=== PATIENT | female | born 1975 | race Caucasian/White ===

== ENCOUNTER → 2017-07-11 | Outpatient (CLI) | payer BC ==
[~2017-07-11] MED LIST: CHOL500019 PO; DOCU100T7 PO; ESTR0.9T PO; FERR220S12 PO; FISH1CAP15 PO; MELO-195 PO; METH500T5 PO; MULT-974 PO; OXYC-12 PO
--- NOTE | 2017-07-11 19:18 | Diagnostic Imaging Report ---
INDICATION: Screening. The current study was also evaluated with a Computer Aided Detection (CAD) system. Comparison is made with prior examination from 06/02/16. FINDINGS: There is a moderate amount of residual fibroglandular tissue bilaterally. There are benign-type calcifications. There is no dominant mass, spiculated lesion or suspicious calcification identified. The skin, nipples and axillae are unremarkable. IMPRESSION: ACR BI-RADS Category 2: Benign findings. Result letter will be mailed to the patient. Note: At least 10% of breast cancer is not imaged by mammography. Dictated by: Dictated on workstation # [id number]
== END ==
LOC: RAD 13:54
PROVIDERS: ATTEND Nurse Practitioner Family
DX: Z12.31 Encounter for screening mammogram for malignant neoplasm of breast (principal)
CPT/HCPCS: 77067

== ENCOUNTER 2017-12-28 05:45 | Outpatient (CLI) | payer BC ==
[~2017-12-28] VITALS: Ht 162.6 cm; Wt 72.6 kg
[2017-12-28] MEDS ORDERED: NF-ESOM40C PO (16:55)
[2017-12-28] MEDS ORDERED: CHOL500044 PO (16:55)
[2017-12-28] MEDS ORDERED: MELO7.5T46 PO (16:55)
== END 2017-12-28 16:57 ==
LOC: PREOP 05:45
PROVIDERS: ATTEND Surgery
DX: Z01.818 Encounter for other preprocedural examination (principal); K62.5 Hemorrhage of anus and rectum

== ENCOUNTER 2018-01-02 11:07 | Day surgery (SDC) | payer BC ==
[~2018-01-02 11:07] MED LIST changes: +CHOL500044 PO; +MELO7.5T46 PO; +NF-ESOM40C PO
[2018-01-02 11:15] VITALS: BP 120/81
[2018-01-02] MEDS ORDERED: LACTATED RINGERS 1,000 ML IV STA (11:35)
[2018-01-02] MEDS ORDERED: LACTATED RINGERS 1,000 ML IV ONE (11:37)
[2018-01-02] MEDS ORDERED: PROPOFOL INJECTION 50 ML IV ONE (12:56)
[2018-01-02] MEDS ORDERED: MIDAZOLAM 2 MG/2 ML (VERSED) VIAL ONE (12:57)
--- NOTE | 2018-01-02 13:24 | Progress Note-Pre Operative ---
Pre-Operative Progress Note H&P Reviewed The H&P was reviewed, patient examined and no changes noted. Date Seen by Provider: Jan 02, 2018 Time Seen by Provider: 13:23 Date H&P Reviewed: Jan 02, 2018 Time H&P Reviewed: 13:23 Pre-Operative Diagnosis: rectal bleeding, gerd, chronic constipation MEHREEN WALKER DO Jan 02, 2018 13:24
[2018-01-02] MEDS ORDERED: HURRICAINE EXT TUBE (BENZOCAINE) ONE (13:26)
[2018-01-02 14:10] VITALS: BP 125/86
[2018-01-02] MEDS ORDERED: HURRICAINE EXT TUBE (BENZOCAINE) XX ONE (14:15)
[2018-01-02 14:40] VITALS: BP 125/89
[2018-01-02 14:50] VITALS: BP 125/89
--- NOTE | 2018-01-02 18:35 | Progress Note-Post Operative ---
Post-Operative Progess Note Surgeon (s)/Principal Administrative Clerk (s) Surgeon MEHREEN WALKER DO Principal Administrative Clerk: na Pre-Operative Diagnosis rectal bleeding, gerd, chronic constipation Post-Operative Diagnosis small hiatal hernia, reflux esophagitis, normal colon/terminal ileum, internal/external hemorrhoids Procedure & Operative Findings Date of Procedure 01/02/18 Procedure Performed/Findings egd c biopsies, colonoscopy Anesthesia Type per performance improvement coordinator Estimated Blood Loss Estimated blood loss (mL): none Specimens/Packing Specimens Removed antrum, ge MEHREEN WALKER DO Jan 02, 2018 18:35
--- NOTE | 2018-01-03 02:15 | OPERATIVE REPORT ---
DATE OF SERVICE: 01/02/2018 PREOPERATIVE DIAGNOSES: Rectal bleeding, GERD and chronic constipation. POSTOPERATIVE DIAGNOSES: Small hiatal hernia, reflux esophagitis, normal colon and terminal ileum, internal and external hemorrhoids. PROCEDURES: EGD with biopsies and colonoscopy. SURGEON: Mehreen Thacker DO. ANESTHESIA: Per SPECIAL POPULATION PARAPROFESSIONAL. ESTIMATED BLOOD LOSS: None. COMPLICATIONS: None. INDICATIONS: The patient is a 42-year-old female who has been having some rectal bleeding and gastroesophageal reflux disease and chronic constipation. She understands risks and benefits of procedures and wished to proceed. Consent was signed in the chart. DESCRIPTION OF PROCEDURE: The patient was taken to the endoscopy suite, placed in the left lateral recumbent position. Timeout was performed. Scope was inserted in mouth, down into esophagus, stomach and into the duodenum without difficulty. There are no polyps, masses or ulcerations in the duodenum. Scope was slowly retracted back into the stomach, was further insufflated. No masses, erythema or ulcers present. There were couple of very small polyps present. Scope was retroflexed noting a very small hiatal hernia. No other pathology noted. The scope was returned to its normal position. Biopsy of the antrum was obtained. The scope was then slowly retracted back into the distal esophagus where there are some erythematous changes consistent with a little bit of reflux esophagitis. Biopsy of the GE junction was obtained. Scope was then slowly retracted back noting no other pathology. The patient tolerated procedure. Digital rectal exam was performed, which is demonstrating some small internal and external hemorrhoids. Scope was then inserted into the rectum and advanced all the way to the cecum with minimal difficulty. The terminal ileum was intubated with normal appearance. Scope was withdrawn back into the colon. There were no polyps, mass or ulcerations in the cecum. Prep was adequate. Scope was slowly retracted back. There were no polyps, masses or ulcerations within the ascending colon, transverse, descending and sigmoid colon. Once in the rectum, scope was also retroflexed noting just a hemorrhoidal disease. Scope was returned to its normal position, slowly withdrawn until completely removed, noting no other pathology. The patient tolerated the procedure well without any complications. She was taken to recovery room in stable condition. RECOMMENDATIONS: The patient will follow up in the office in 2 weeks. I will await biopsy results. We consider changing Nexium to Protonix. We will await pathology results. The patient will need repeat colonoscopy in 10 years unless family history of colon cancer, which would then be 5 years. If she has any problems prior to that, she should be reevaluated at that time. Job ID: [id number] DocumentID: [id number] Dictated Date: 01/02/2018 18:39:30 Reproduction Production Manager Date: 01/03/2018 02:15:10 Dictated By: MEHREEN THACKER DO
== END 2018-01-02 14:50 | disposition home or self-care (01) ==
LOC: ENDO 11:07
PROVIDERS: ATTEND Surgery
DX: K21.0 Gastro-esophageal reflux disease with esophagitis (principal); K64.8 Other hemorrhoids; K64.4 Residual hemorrhoidal skin tags; K44.9 Diaphragmatic hernia without obstruction or gangrene; Z79.899 Other long term (current) drug therapy; Z87.891 Personal history of nicotine dependence; Z88.0 Allergy status to penicillin